=== PATIENT | male | born 1995 | race Caucasian/White ===

== ENCOUNTER 2017-12-11 07:55 | Day surgery (SDC) | payer OTHER, SELFPAY ==
[2017-12-10 12:37] VITALS: BMI 30.4
[2017-12-11] VITALS (7 sets, daily range): BP systolic 137–159; BP diastolic 62–85; PULSE 74–94; RESP 16–18; TEMP 36.6–36.9; O2SAT 97–100; BMI 32.8
--- NOTE | 2017-12-11 08:00 | DI.RAD.S_ITS ---
PROCEDURE: XR ANKLE RT MIN 3V INDICATIONS: RIGHT ANKLE FX REPAIR TECHNIQUE: Single intraoperative fluoroscopic view of the ankle were acquired. COMPARISON: None. FINDINGS: Bones: Single intraoperative fluoroscopic view demonstrates ORIF of the distal fibula. Bones are in anatomic alignment. IMPRESSION: Single intraoperative fluoroscopic view of right distal fibular ORIF. Dictated by: Sis Thompson M.D. on 12/11/2017 at 11:19 Approved by: Sis Thompson M.D. on 12/11/2017 at 11:20
--- NOTE | 2017-12-11 08:33 | PM.PREOP ---
Pre-operative Note Interval Note Pre-op Check: History & Physical Reviewed by Physician H&P completed within 30 days and has changed as indicated here:: No changes.
[2017-12-11] MEDS: LACTATED RINGERS 1,000 ML 42 ML IV ×2 (08:34→10:23)
[2017-12-11] MEDS: CEFAZOLIN 2 GM/100 ML FROZ.PIGGY IV (08:48)
[2017-12-11] MEDS: BUPIVACAINE 0.25% (PF) 30 ML VIAL INJ (10:02)
--- NOTE | 2017-12-11 10:42 | PM.OP.1 ---
Operative Date/Time/Diagnoses - Date of procedure: 12/11/17 Time of procedure: 08:45 Pre-op diagnosis: Right lateral malleolus (fibula) fracture Post-op diagnosis: same Procedure & Clinicians Procedure: Right lateral malleolus open reduction internal fixation. Same procedure as scheduled: Yes Indications: 22-year-old male who on December 01, 2017 sustained a right lateral malleolus Prabhakar B fracture when he was hiking and fell. He was unable bear weight and presented to outside hospital where he was diagnosed with a fracture. The risks benefits indications expectations of treatment options were discussed with the patient. The risks of surgery to include but not limited to infection, bleeding, damage to neurovascular structures, need for additional surgery, persistent or worsening pain, stiffness, iatrogenic fracture, nonunion, malunion, deep vein thrombosis, pulmonary embolism, loss of limb and loss of life were discussed with the patient. All questions were answered, the patient elected to proceed with surgery and informed consent was obtained. Surgeon: Yanira Crespo Vice President Of Academic Affairs: Tyler Jang Anesthesia Type: General (LMA) and Local (20 mL of 0.25upivacaine without epinephrine) Operative Notes Findings: Displaced right lateral malleolus fracture at the level of the syndesmosis. Closure Type: primary Specimen(s): none sent Implants & Drains: 1. Arthrex 7 hole 1/3 tubular plate. 2. 3.5 mm cortical screw x6. 3. 4.0 mm cancellous screw x2. Applied: cast(s) (Short leg plaster splint) Estimated Blood Loss (mL): 1 Blood products transfused: none Tourniquet time (min): 62 Procedure in detail: The patient was met in the preoperative hold area on the morning of surgery were reconfirmed with the correct patient, were placed to the correct procedure and the correct extremity which was the right lower extremity identified. Prior to the patient receiving medications the operative extremity was initialed by the surgeon. The patient was then brought back to the operating room in stable condition and placed supine on the operating room table. All bony prominences were well padded and sequential compression device was placed on the non operative leg. General anesthesia was induced without complication and an LMA was placed. The right lower extremity was then prepped and draped in the usual sterile fashion. After final draping additional ChloraPrep was utilized. 3 min were allowed to lapse to the level the ChloraPrep to dry. We held a surgical time-out where we confirmed that we had the correct patient, planned to do the correct procedure and had the correct extremity which was the right lower extremity identified. We also confirmed the patient received preoperative antibiotics, that all necessary gear was in the room confirmed sterile and that no members of the team had any concerns. I began by exsanguinating right lower extremity inflating the tourniquet to 250 mm Hg. I then made a lateral incision over the fibula. After sharply incising the skin I utilized electrocautery to obtain hemostasis. I then used dissection scissors to dissect down to the fibula. I elevated the periosteum in the area about the fracture. I then debrided the fracture of any hematoma or debris with a curette and irrigation. I then reduced the fracture and held in place with 2 [id number]-[id number] reduction clamps. I then obtained fluoroscopy demonstrating adequate reduction of the fracture. I then placed a lag screw perpendicular to the fracture by 1st drilling with a 3.5 mm drill from proximal anterior to the fracture line. I then drilled with a 2.5 mm drill from the fracture line to the posterior distal cortex. I then placed a 3.5 mm cortical screw in a lag fashion. I then removed the more proximal of the reduction clamps. I then placed a 2nd lag screw utilizing the same technique more proximally. I then removed the 2nd reduction clamp. I then placed a 7 hole 1/3 tubular plate on the lateral aspect of the fibula in a derotational manner. I 1st placed a bicortical 3.5 mm screw in the 3rd most distal hole after drilling bicortically with a 2.5 mm drill. I then drilled the distal most 2 holes again with a 2.5 mm drill bicortically and placed a 4.0 mm cancellous screws. I then drilled bicortically with a 2.5 mm drill in the proximal most 3 holes and placed 3.5 mm cortical screws bicortically in each of these holes. I then obtained AP, mortise and lateral r radiographs showing reduction of the fracture and appropriate placement of the implants. I then performed a stress external rotation view as well as a Cotton test which showed the ankle to be stable, therefore no syndesmotic fixation was performed. The wound was then thoroughly irrigated. The periosteum was closed utilizing 0 Polysorb in a gghsbs-qk-uleta fashion. The subcuticular layer was then closed utilizing 2-0 Polysorb in a buried fashion. The skin was then closed utilizing 3-0 nylon in a running fashion. The wound was then dressed with sterile Xeroform, plain gauze and Webril. The tourniquet was then deflated after 62 min. The patient was then placed into a well-padded [place] splint. The patient was then woken from general anesthesia without complication and taken to the PACU in stable condition. All sponge counts and needle counts were correct at the conclusion of the case. Complications: none Condition: stable Disposition: PACU Plan for aftercare: The patient will be discharged home same day of surgery. He remained in his splint until he is seen at his 1st postoperative visit. He will be nonweightbearing on his right lower extremity for 6 weeks. At his 1st follow-up visit I will transition him to a Cam boot and let him begin gentle plantar and dorsiflexion range of motion. At his 6 week follow-up I will obtain radiographs, anticipate advancing weight-bearing in Cam boot at that time.
[2017-12-11] MEDS: MEPERIDINE 50 MG/ML 25 MG IV (10:43)
--- NOTE | 2017-12-11 10:54 | P.OP_ITS ---
Operative Date/Time/Diagnoses - Date of procedure: 12/11/17 Time of procedure: 08:45 Pre-op diagnosis: Right lateral malleolus (fibula) fracture Post-op diagnosis: same Procedure & Clinicians Procedure: Right lateral malleolus open reduction internal fixation. Same procedure as scheduled: Yes Indications: 22-year-old male who on December 01, 2017 sustained a right lateral malleolus Prabhakar B fracture when he was hiking and fell. He was unable bear weight and presented to outside hospital where he was diagnosed with a fracture. The risks benefits indications expectations of treatment options were discussed with the patient. The risks of surgery to include but not limited to infection, bleeding, damage to neurovascular structures, need for additional surgery, persistent or worsening pain, stiffness, iatrogenic fracture, nonunion , malunion, deep vein thrombosis, pulmonary embolism, loss of limb and loss of life were discussed with the patient. All questions were answered, the patient elected to proceed with surgery and informed consent was obtained. Surgeon: Yanira Crespo Sheet Turner: Tyler Jang Anesthesia Type: General (LMA) and Local (20 mL of 0.25 upivacaine without epinephrine) Operative Notes Findings: Displaced right lateral malleolus fracture at the level of the syndesmosis. Closure Type: primary Specimen(s): none sent Implants & Drains: 1. Arthrex 7 hole 1/3 tubular plate. 2. 3.5 mm cortical screw x6. 3. 4.0 mm cancellous screw x2. Applied: cast(s) (Short leg plaster splint) Estimated Blood Loss (mL): 1 Blood products transfused: none Tourniquet time (min): 62 Procedure in detail: The patient was met in the preoperative hold area on the morning of surgery were reconfirmed with the correct patient, were placed to the correct procedure and the correct extremity which was the right lower extremity identified. Prior to the patient receiving medications the operative extremity was initialed by the surgeon. The patient was then brought back to the operating room in stable condition and placed supine on the operating room table. All bony prominences were well padded and sequential compression device was placed on the non operative leg. General anesthesia was induced without complication and an LMA was placed. The right lower extremity was then prepped and draped in the usual sterile fashion. After final draping additional ChloraPrep was utilized. 3 min were allowed to lapse to the level the ChloraPrep to dry. We held a surgical time-out where we confirmed that we had the correct patient, planned to do the correct procedure and had the correct extremity which was the right lower extremity identified. We also confirmed the patient received preoperative antibiotics, that all necessary gear was in the room confirmed sterile and that no members of the team had any concerns. I began by exsanguinating right lower extremity inflating the tourniquet to 250 mm Hg. I then made a lateral incision over the fibula. After sharply incising the skin I utilized electrocautery to obtain hemostasis. I then used dissection scissors to dissect down to the fibula. I elevated the periosteum in the area about the fracture. I then debrided the fracture of any hematoma or debris with a curette and irrigation. I then reduced the fracture and held in place with 2 rdtqh-tu-unbun reduction clamps. I then obtained fluoroscopy demonstrating adequate reduction of the fracture. I then placed a lag screw perpendicular to the fracture by 1st drilling with a 3.5 mm drill from proximal anterior to the fracture line. I then drilled with a 2.5 mm drill from the fracture line to the posterior distal cortex. I then placed a 3.5 mm cortical screw in a lag fashion. I then removed the more proximal of the reduction clamps. I then placed a 2nd lag screw utilizing the same technique more proximally. I then removed the 2nd reduction clamp. I then placed a 7 hole 1/3 tubular plate on the lateral aspect of the fibula in a derotational manner. I 1st placed a bicortical 3.5 mm screw in the 3rd most distal hole after drilling bicortically with a 2.5 mm drill. I then drilled the distal most 2 holes again with a 2.5 mm drill bicortically and placed a 4.0 mm cancellous screws. I then drilled bicortically with a 2.5 mm drill in the proximal most 3 holes and placed 3.5 mm cortical screws bicortically in each of these holes. I then obtained AP, mortise and lateral r radiographs showing reduction of the fracture and appropriate placement of the implants. I then performed a stress external rotation view as well as a Cotton test which showed the ankle to be stable, therefore no syndesmotic fixation was performed. The wound was then thoroughly irrigated. The periosteum was closed utilizing 0 Polysorb in a fsovgs-oo-ynuha fashion. The subcuticular layer was then closed utilizing 2-0 Polysorb in a buried fashion. The skin was then closed utilizing 3-0 nylon in a running fashion. The wound was then dressed with sterile Xeroform , plain gauze and Webril. The tourniquet was then deflated after 62 min. The patient was then placed into a well-padded [place] splint. The patient was then woken from general anesthesia without complication and taken to the PACU in stable condition. All sponge counts and needle counts were correct at the conclusion of the case. Complications: none Condition: stable Disposition: PACU Plan for aftercare: The patient will be discharged home same day of surgery. He remained in his splint until he is seen at his 1st postoperative visit. He will be nonweightbearing on his right lower extremity for 6 weeks. At his 1st follow-up visit I will transition him to a Cam boot and let him begin gentle plantar and dorsiflexion range of motion. At his 6 week follow-up I will obtain radiographs, anticipate advancing weight-bearing in Cam boot at that time.
[2017-12-11] MEDS: fentaNYL 100 MCG/2 ML INJ 50 MCG IV ×2 (10:59→11:04)
[2017-12-11] MEDS: HYDROCODONE/ACET 5/325 TABLET 1 TAB PO (11:16)
== END 2017-12-11 11:52 ==
LOC: OR 07:58
PROVIDERS: Visit Provider Orthopaedic Surgery
PROC: 0SSF04Z Reposition Right Ankle Joint with Internal Fixation Device, Open Approach (ICD-10-PCS; CPT 27792; principal; 2017-12-11 08:45)
DX: S82.61XA Displaced fracture of lateral malleolus of right fibula, initial encounter for closed fracture (principal); W01.0XXA Fall on same level from slipping, tripping and stumbling without subsequent striking against object, initial encounter; Y93.01 Activity, walking, marching and hiking
CPT/HCPCS: 27792; 73610; 76001; J0690; J1100; J2175; J2250; J2405; J2704; J3010

== ENCOUNTER 2017-12-19 09:39 | Emergency (ER) | payer OTHER, SELFPAY ==
[2017-12-19 09:40] VITALS: BP 127/67; PULSE 74; RESP 12; TEMP 36.1; O2SAT 100
--- NOTE | 2017-12-19 10:10 | ED.LOWEXIN ---
HPI - Extremity Injury (Lower) General Chief Complaint: Extremity Injury, Lower Stated Complaint: shooting pain on back of right leg Time Seen by Provider: 12/19/17 10:01 Source: patient Mode of arrival: ambulatory Limitations: no limitations History of Present Illness HPI Narrative: Patient is a 19-year-old male presents with right leg pain. He had ORIF of the right ankle on December 11. He has been in a cast said. Over last 2 days he has had increasing pain worse when he stands vertical better when he lays with his legs stretched out. He has not had any fever or chills. He has no numbness or tingling. Pain is right behind his knee. He denies any chest pain or shortness of breath Related Data Home Medications Medication Instructions Recorded Confirmed hydrocodone-acetaminophen [[place]] See Label Instructions .ROUTE 12/11/17 12/19/17 .COMPLEX PRN acetaminophen [Acetaminophen Extra 1,000 mg PO Q6H PRN MDD 3000 12/19/17 12/19/17 Strength] Previous Rx's Medication Instructions Recorded apixaban [Eliquis] 5 mg PO BID #74 tab 12/19/17 Allergies Allergy/AdvReac Type Severity Reaction Status Date / Time No Known Drug Allergies Allergy Verified 12/11/17 08:19 Review of Systems Review of Systems All systems reviewed & are unremarkable except as noted in HPI and below Constitutional Denies chills, Denies fever(s), Denies lethargy and Denies weakness Cardiovascular Denies chest pain, Denies irregular heart rhythm, Denies lightheadedness, Denies palpitations, Denies dyspnea, Denies dyspnea on exertion and Denies orthopnea Respiratory Denies cough, Denies dyspnea, Denies dyspnea on exertion and Denies wheezing Neurologic Denies weakness Endocrine Denies palpitations Allergic/Immunologic Denies wheezing PFSH Medical History Numbness (Acute) [place] teeth extracted (Acute) Social History household members: significant other Smoking Status: Former smoker alcohol intake: current Exam Initial Vital Signs Initial Vital Signs: Vital Signs Temperature 96.9 F L 12/19/17 09:40 Pulse Rate 74 12/19/17 09:40 Respiratory Rate 12 12/19/17 09:40 Blood Pressure 127/67 H 12/19/17 09:40 Pulse Oximetry 100 12/19/17 09:40 Const General: cooperative and healthy appearing Orientation: alert, awake and oriented x3 Resp Effort & Inspection: normal respiratory effort and able to speak in complete sentences Auscultation: clear to auscultation bilaterally Cardio Rhythm: regular rhythm Heart Sounds: S1 normal and S2 normal Skin Lesions: no lesions Rashes: no rashes Wounds: no wounds Extrem Other: Right leg-cast is removed. No significant swelling that he is tender posterior his knee. Distal pedal pulses intact. No erythema. Incision site is lateral malleoli and appears clean and dry. Course Orders Ordered: Discontinued Medications Apixaban (Eliquis) 10 mg PO NOW ONE Stop: 12/19/17 10:43 Last Admin: 12/19/17 10:56 Dose: 10 mg Vital Signs - 8 hr 12/19/17 09:40 Temperature 96.9 F L Pulse Rate 74 Respiratory Rate 12 Blood Pressure 127/67 H Pulse Oximetry 100 MDM - Extremity Injury (Lower) Imaging Data Venous US: Radiologist's impression: PROCEDURE: US PERIPH VENOUS LOW EXTREM RT INDICATIONS: pain post operative TECHNIQUE: Real-time imaging, as well as color and pulse Doppler interrogation, were performed of the lower extremity deep veins from the inguinal ligament to the popliteal fossa. COMPARISON: None. FINDINGS: Thrombus is identified involving the posterior tibial veins. The thrombus does not extend into the popliteal vein, superficial femoral vein, profunda femoral vein, or common femoral vein. IMPRESSION: Deep vein thrombus within the right calf does not extend into the popliteal vein or other deep veins of the thigh. Dictated by: Isac Wallace M.D. on 12/19/2017 at 11:00 [facility] Narrative Medical decision making narrative: Discussion with patient about anticoagulation and risks. We also discussed risks and complications of DVTs including pulmonary embolisms. All questions have been addressed. Discharge Plan Departure Patient Disposition: Home, Self-Care Clinical Impression: DVT (deep venous thrombosis) Discharge Date/Time: 12/19/17 11:38 Interventions: ED Discharge Assessment Last Done: 12/19/17 11:37 Instructions: Deep Vein Thrombosis Activity Restrictions/Additional Instructions: *You have been diagnosed with deep vein thrombosis *What to do: Avoid ambulation for the next 24-48 hours if at all possible, with this medication insurance may not cover if this is the case please contact us or your primary care provider to help find an appropriate medication for you. -you will bleed more easily on this medication, if you should have any trauma to the head please report to the emergency department as soon as possible for evaluation *Continue to take medications as directed Eliquis 10 mg twice a day for 7 days then 5 mg twice a day *Follow up with your primary care provider in 2-3 days, follow up with your orthopedic, call today to schedule appointment *Return to ER if you should have increasing pain, swelling, shortness of breath, chest pain or any new, worsening or concerning symptoms Prescriptions: New apixaban [Eliquis] 5 mg tablet 5 mg PO BID Qty: 74 RF: 0 No Action hydrocodone-acetaminophen [[place]] 5-325 mg Tablet See Label Instructions .ROUTE .COMPLEX PRN (Reason: Pain (Scale Score 4-6)) RF: 0 acetaminophen [Acetaminophen Extra Strength] 500 mg Tablet 1,000 mg PO Q6H MDD 3000 PRN (Reason: Pain, Mild) RF: 0 Referrals: [facility] [Outside]
[2017-12-19 10:15] VITALS: PULSE 70
--- NOTE | 2017-12-19 10:16 | DI.US.S_ITS ---
PROCEDURE: US PERIPH VENOUS LOW EXTREM RT INDICATIONS: pain post operative TECHNIQUE: Real-time imaging, as well as color and pulse Doppler interrogation, were performed of the lower extremity deep veins from the inguinal ligament to the popliteal fossa. COMPARISON: None. FINDINGS: Thrombus is identified involving the posterior tibial veins. The thrombus does not extend into the popliteal vein, superficial femoral vein, profunda femoral vein, or common femoral vein. IMPRESSION: Deep vein thrombus within the right calf does not extend into the popliteal vein or other deep veins of the thigh. Dictated by: Isac Wallace M.D. on 12/19/2017 at 11:00 Approved by: Isac Wallace M.D. on 12/19/2017 at 11:05
--- NOTE | 2017-12-19 10:17 | PC.NURSE ---
bertrand splint removed. Minimal swelling. Full CSM. Pain minimal w/ leg elevated. Incision is clean and dry w/o s/s of infection. Calf is tender to touch. Not hot / red. Denies shortness of breath / chest pain.
[2017-12-19 10:53] VITALS: BP 122/69; PULSE 70; RESP 16; O2SAT 97
[2017-12-19] MEDS: APIXABAN 5 MG TABLET 10 MG PO (10:56)
== END 2017-12-19 11:38 | disposition home or self-care (01) ==
PROVIDERS: Emergency Provider Emergency Medicine
DX: I82.401 Acute embolism and thrombosis of unspecified deep veins of right lower extremity (principal)
CPT/HCPCS: 29515; 93971; 99282; 99284

== ENCOUNTER → 2021-07-19 15:35 | Outpatient (CLI) | payer OTHER, SELFPAY ==
--- NOTE | 2021-07-19 | DI.MRI.S_ITS ---
PROCEDURE: MR CERVICAL SPINE WO CON INDICATIONS: NEUROPTAHIC NUMBNESS AND TINGLING TECHNIQUE: Noncontrast sagittal T1 spin echo and T2 fast spin echo, sagittal STIR, foraminal oblique sagittal T2 fast spin echo, and axial gradient echo or T2 fast spin echo through the cervical spine. COMPARISON: [facility], CR, XR CERVICAL SPINE WITH OBLIQUES, 05/06/2021, 9:57. FINDINGS: Image quality: This examination is limited by involuntary motion artifact. Alignment and Curvature: There is straightening of the normal cervical lordosis. No focal AP alignment abnormality is seen. Bone Marrow: Marrow demonstrates normal overall signal. Spinal Cord: Visualized spinal cord has normal size and signal. No cerebellar tonsillar herniation. Paraspinous Soft Tissues: No paravertebral masses. Prevertebral soft tissues are normal in thickness. C2-C3: Normal appearance. C3-C4: The disc height and disc signal are relatively well preserved. Mild to moderate disc osteophyte complex is seen, with a mild central disc osteophyte protrusion. Mild to moderate facet hypertrophy is seen. Moderate bilateral neural foraminal narrowing is seen. Moderate central canal narrowing is seen. There is associated mass effect upon the ventral spinal cord. C4-C5: The disc height and disc signal are relatively well preserved. A mild degree of generalized disc osteophyte complex is seen. Moderate facet joint hypertrophy is seen. No significant neural foraminal narrowing is seen. Mild to moderate central canal narrowing is seen, with minimal mass effect upon the ventral spinal cord. C5-C6: Minimal to mild loss of disc height and disc signal can be seen. Moderate disc osteophyte complex is seen, with a central/right disc osteophyte protrusion, as on series 3, image 29. Mild to moderate facet hypertrophy is seen. There is [id number] bilateral neural foraminal narrowing seen. At least moderate central canal narrowing is seen. There is associated mass effect upon the ventral spinal cord. C6-C7: Minimal to mild loss of disc height and disc signal can be seen. Moderate disc osteophyte complex is seen, with a right lateral recess/right foraminal disc extrusion, which is best seen on series 4, image 6, yet can also be seen on series 3 images 33 and 34. This disc extrusion measures 1 cm craniocaudal. Mild facet joint hypertrophy is seen. There is moderate to severe bilateral neural foraminal narrowing seen. Moderate to severe central canal narrowing is seen, with associated mass effect upon the ventral spinal cord. C7-T1: No significant abnormality is seen. 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 At this level, there is moderate to severe bilateral neural foraminal narrowing and moderate to severe central canal narrowing present. Dictated by: Terry Huang M.D. on 07/19/2021 at 16:13 Approved by: Terry Huang M.D. on 07/19/2021 at 16:18
== END ==
PROVIDERS: Referring Provider Student in an Organized Health Care Education/Training Program; Visit Provider Student in an Organized Health Care Education/Training Program
DX: M50.223 Other cervical disc displacement at C6-C7 level (principal); M47.812 Spondylosis without myelopathy or radiculopathy, cervical region
CPT/HCPCS: 72141

== ENCOUNTER 2021-07-24 07:09 | Emergency (ER) | payer OTHER, SELFPAY ==
[2021-07-24 07:10] VITALS: BP 143/88; PULSE 88; RESP 18; TEMP 36.7; O2SAT 100; BMI 31.0
--- NOTE | 2021-07-24 08:05 | ED.EXTPRO ---
HPI - Extremity Problem General Chief complaint: Extremity Problem,Nontraumatic Stated complaint: right arm/hand numb x2 days Time Seen by Provider: 07/24/21 08:05 Source: patient Mode of arrival: Ambulatory Limitations: no limitations History of Present Illness HPI Narrative: This is a 26 year old male who comes emergency department with complaint of right upper extremity pain and numbness and weakness. Patient states he had injury last March. He states he turned his neck suddenly began having pain. He has had intermittent symptoms. They have become more persistent. He was seen by [facility] [employer] doctors ordered a cervical MRI. Had this on the 19 of July. Patient states that for the past 2 days he has had increased pain, he has had numbness and tingling from the elbow down to his hand and feels like it is a little bit more weak. Patient states he has been on steroids but he gets allergic reaction that makes his nipple swell. Patient states he is on oxycodone 1 tablet every 4-6 hours and Flexeril 1 tablet every 10 hours. He still quite uncomfortable. He has a sling that he has been wearing that is somewhat improving his symptoms. He does note that he has worsened symptoms when he extends his back, when he rotates to the right or fever rotates all the way to the left this worsens symptoms and causes increased pain down his arm. He is otherwise healthy. He does have some issues with sciatica. He denies any surgeries besides and ankle surgery. Patient states he does have ibuprofen 600 mg available but has not been taking it he was not sure he should take that with the oxycodone. Related Data Home Medications Medication Instructions Recorded Confirmed hydrocodone 5 mg-acetaminophen 325 See Rx Instructions .ROUTE 12/11/17 12/19/17 mg tablet ([place]) .COMPLEX PRN acetaminophen 500 mg tablet 1,000 mg PO Q6H PRN MDD 3000 12/19/17 12/19/17 (Acetaminophen Extra Strength) Previous Rx's Medication Instructions Recorded apixaban 5 mg tablet (Eliquis) 5 mg PO BID #74 tab 12/19/17 gabapentin 300 mg capsule 300 mg PO TID #30 cap 07/24/21 Allergies Allergy/AdvReac Type Severity Reaction Status Date / Time prednisone Allergy Verified 07/24/21 07:22 Review of Systems Review of Systems ROS Unobtainable: All systems reviewed & are unremarkable except as noted in HPI and below Patient History Medical History Numbness Surgical History [place] teeth extracted Social History household members: significant other Smoking Status: Former smoker alcohol intake: current Smoking Status: Former smoker alcohol intake frequency: a few times a week Substance Use Type: does not use Exam Narrative Exam Narrative: GENERAL: Alert and oriented x three, male in mild distress. HEENT: Head normocephalic, atraumatic, EOMI, pupils reactive, face symmetric, moist mucous membranes NECK: Supple, full range of motion CARDIOVASCULAR: Regular rate and rhythm without murmurs, rubs or gallops. RESPIRATORY: Breath sounds equal bilaterally, no wheezes rales or rhonchi. ABDOMEN: Soft, nontender. Normoactive bowel sounds all 4 quadrants. No guarding or rebound, rigidity, no mass : No CVA tenderness BACK: No cervical, thoracic or lumbar vertebral point tenderness. Positive Spurling's with rotation to the right and extension. Patient has normal range of motion. Patient's gait is normal. Muscle strength is 5/5 in upper extremities. 2+ radial pulses bilaterally. Sensation is intact in upper extremities but is slightly decreased and right forearm anterior posterior as well as hand. Patient Services Specialist are equal bilaterally. Patient has normal flexion extension at the wrist, elbow as well as flexion extension of the fingers and ADD/abductors of fingers. EXTREMITIES: Normal range of motion, no clubbing or edema. Neurovascularly intact. NEUROLOGICAL: Cranial nerves II through XII grossly intact. Moving all extremities SKIN: Warm, dry, no petechiae, no rashes or lesions. Initial Vital Signs Initial Vital Signs: Vital Signs Temperature 98.0 F 07/24/21 07:10 Pulse Rate 88 07/24/21 07:10 Respiratory Rate 18 07/24/21 07:10 Blood Pressure 143/88 H 07/24/21 07:10 Pulse Oximetry 100 07/24/21 07:10 Course Reevaluation(s) Reevaluation #1: Discussed his MRI findings and recommendations from Orthopedic surgery. States he can also follow-up with orthopedic surgery at the [employer]. He is comfortable with this plan. He states he has ibuprofen 600 mg at home and does not request any additional pain medication here in the department. He is open to trying gabapentin. He is reluctant to try steroids again as he had allergic reaction that he describes as having his nipples swell with steroids in the past. We discussed to monitor his symptoms and reviewed red flag symptoms/return precautions. Patient feels comfortable with this plan. All questions answered. Time: 08:38 Consultations Consultation #1: Jaz Lott-orthopedic surgery. Reviewed patient's findings he has paresthesias. He has good muscle strength on exam. Absorption Plant Operator Helper is intact. Patient does have cervical canal stenosis that is moderate to severe, neuroforaminal narrowing that is are severe along with disc protrusion affecting the right side the C5-6 region. He recommends steroids which we discussed patient has had allergic reactions to in the past does not tolerate. Pain control and to see him in the office this week along with return precautions to the ED to monitor his symptoms. Time: 08:15 Vital Signs Vital signs: Vital Signs - 8 hr 07/24/21 07:10 Temperature 98.0 F Pulse Rate 88 Respiratory Rate 18 Blood Pressure 143/88 H Pulse Oximetry 100 MDM - Extremity (Nontraumatic) Imaging Data Cspine MRI: Radiologist's Impression: [address] [address] Magnetic Resonance Report Signed Patient: Selwny Phillips MR#: [id number] : 1995 Acct:[id number] Age/Sex: 26 / M Date of Service: 07/19/21 Loc: MRI Accession Number: [id number] ?? Procedure: MR cervical spine wo con Ordering Provider: Satya Whitfield MD PROCEDURE:? MR CERVICAL SPINE WO CON ? INDICATIONS:? NEUROPTAHIC NUMBNESS AND TINGLING ? TECHNIQUE:? Noncontrast sagittal T1 spin echo and T2 fast spin echo, sagittal STIR, foraminal oblique sagittal T2 fast spin echo, and axial gradient echo or T2 fast spin echo through the cervical spine.? ? COMPARISON:? [facility], CR, XR CERVICAL SPINE WITH OBLIQUES, 05/06/2021, 9:57. ? FINDINGS:? Image quality:? This examination is limited by involuntary motion artifact.? ? Alignment and Curvature:? There is straightening of the normal cervical lordosis. No focal AP alignment abnormality is seen.? ? Bone Marrow:? Marrow demonstrates normal overall signal.? ? Spinal Cord:? Visualized spinal cord has normal size and signal.? No cerebellar tonsillar herniation.? ? Paraspinous Soft Tissues:? No paravertebral masses.? Prevertebral soft tissues are normal in thickness.? ? C2-C3:? Normal appearance.? ? C3-C4:? The disc height and disc signal are relatively well preserved.? Mild to moderate disc osteophyte complex is seen, with a mild central disc osteophyte protrusion.? Mild to moderate facet hypertrophy is seen. Moderate bilateral neural foraminal narrowing is seen.? Moderate central canal narrowing is seen.? There is associated mass effect upon the ventral spinal cord.? ? C4-C5:? The disc height and disc signal are relatively well preserved. A mild degree of generalized disc osteophyte complex is seen.? Moderate facet joint hypertrophy is seen.? No significant neural foraminal narrowing is seen.? Mild to moderate central canal narrowing is seen, with minimal mass effect upon the ventral spinal cord. ? C5-C6:? Minimal to mild loss of disc height and disc signal can be seen.? Moderate disc osteophyte complex is seen, with a central/right disc osteophyte protrusion, as on series 3, image 29. Mild to moderate facet hypertrophy is seen.? There is [id number] bilateral neural foraminal narrowing seen.? At least moderate central canal narrowing is seen. There is associated mass effect upon the ventral spinal cord.? ? C6-C7:? Minimal to mild loss of disc height and disc signal can be seen.? Moderate disc osteophyte complex is seen, with a right lateral recess/right foraminal disc extrusion, which is best seen on series 4, image 6, yet can also be seen on series 3 images 33 and 34. This disc extrusion measures 1 cm craniocaudal.? Mild facet joint hypertrophy is seen.? There is moderate to severe bilateral neural foraminal narrowing seen.? Moderate to severe central canal narrowing is seen, with associated mass effect upon the ventral spinal cord. ? C7-T1:? No significant abnormality is seen. ? ? IMPRESSION:? Premature cervical spine degenerative changes are seen, including a prominent disc extrusion on the right at the C6-C7 level.? ? At this level, there is moderate to severe bilateral neural foraminal narrowing and moderate to severe central canal narrowing present.? ? Dictated by: Terry Huang M.D. on 07/19/2021 at 16:13 ? ? Approved by: Terry Huang M.D. on 07/19/2021 at 16:18?? [facility] Narrative Medical decision making narrative: This is a 26-year-old comes in with right upper extremity radiculopathy that is been intermittent for several months. He had an MRI on the which was reviewed which does show moderate to severe canal stenosis, foraminal narrowing and bulge of the disc. Patient's physical exam is reassuring he has full strength on examination for me. His range of motion is appropriate. His perinatal coordinator are equal. I discussed with Orthopedic surgery who is happy to follow the patient. He does not tolerate steroids he gets nipple swelling. He does not wish to attempt steroids. Did give a prescription for gabapentin. We also reviewed his medications and optimize his timing. We did review return precautions. Patient also has follow-up with [facility] Orthopedic surgery as well as our orthopedic surgeons. Discharge Plan Departure Patient Disposition: Home Clinical Impression: Cervical radiculopathy, Intervertebral disc extrusion, Neural foraminal stenosis of cervical spine Instructions: DI for Lumbar Radiculopathy Activity Restrictions/Additional Instructions: Follow-up with orthopedic surgery this week. Call today to set up an appointment. I spoke with Dr. Linn who is happy to follow up with you. You may continue oxycodone every 4-6 hours. You may add ibuprofen up to 600 mg every 6 hours with this and you can add Tylenol up to a 1000 mg every 8 hours also. May increase your Flexeril to 1 tablet every 8 hours if needed. You can try gabapentin 1 tablet every 8 hours as needed for pain. This medication can be titrated upwards. Call your physician to assist with that if you need. Prescription sent to [facility] Please return for fevers, new or worsening weakness, loss of sensation, inability to move your arm map plotter objects, loss of bowel or bladder control, rapidly worsening pain or other new or concerning symptoms. Prescriptions: New gabapentin 300 mg capsule 300 mg PO TID Qty: 30 0RF No Action hydrocodone-acetaminophen [[place]] 5-325 mg Tablet See Rx Instructions .ROUTE .COMPLEX PRN (Reason: Pain (Scale Score 4-6)) 0RF Rx Instructions: q4-6hrs acetaminophen [Acetaminophen Extra Strength] 500 mg Tablet 1,000 mg PO Q6H MDD 3000 PRN (Reason: Pain, Mild) 0RF apixaban [Eliquis] 5 mg tablet 5 mg PO BID Qty: 74 0RF Rx Instructions: Take 10 mg twice a day for 7 days then 5 mg twice a day Referrals: Jaz Enamorado MD [Physician] - Stand Alone Forms: Work Release Note
[2021-07-24 08:47] VITALS: BP 141/79; PULSE 69; O2SAT 98
== END 2021-07-24 09:05 | disposition home or self-care (01) ==
PROVIDERS: Emergency Provider Emergency Medicine
DX: M54.12 Radiculopathy, cervical region (principal); M50.223 Other cervical disc displacement at C6-C7 level; M48.02 Spinal stenosis, cervical region; Z88.8 Allergy status to other drugs, medicaments and biological substances; Z87.891 Personal history of nicotine dependence
CPT/HCPCS: 99281

== ENCOUNTER → 2021-09-22 09:25 | Outpatient (CLI) | payer OTHER, SELFPAY ==
[2021-09-22 10:21] LABS: COVID19 -Nasal RAPID Negative (Negative)
== END ==
PROVIDERS: Visit Provider Nurse Practitioner Family
DX: Z20.822 Contact with and (suspected) exposure to COVID-19 (principal)
CPT/HCPCS: 87635; C9803

== ENCOUNTER 2021-09-25 11:40 | Day surgery (SDC) | payer OTHER, SELFPAY ==
[2021-09-13 14:21] VITALS: BMI 31.0
[2021-09-25] VITALS (16 sets, daily range): BP systolic 112–138; BP diastolic 53–84; PULSE 75–104; RESP 12–97; TEMP 36.1–36.9; O2SAT 13–100; BMI 31.0
--- NOTE | 2021-09-25 | DI.RAD.S_ITS ---
PROCEDURE: XR CERVICAL SPINE 2V OR 3V INDICATIONS: C5-6 C6-7 ACDF TECHNIQUE: 3 fluoroscopic images of the cervical spine. COMPARISON: [facility], CR, XR CERVICAL SPINE WITH OBLIQUES, 05/06/2021, 9:57. FINDINGS: Three fluoroscopic images of the cervical spine demonstrate anterior cervical fixation at C5-7. IMPRESSION: Postsurgical change of the cervical spine as detailed above. Dictated by: Zoltan Avery M.D. on 09/25/2021 at 19:07 Approved by: Zoltan Avery M.D. on 09/25/2021 at 19:11
[2021-09-25] MEDS: LACTATED RINGERS 1,000 ML 42 ML IV (12:15)
[2021-09-25] MEDS: ACETAMINOPHEN 325 MG TABLET 975 MG PO (12:18)
--- NOTE | 2021-09-25 13:04 | PM.PREOP ---
Pre-operative Note COVID-19 COVID-19 status: Negative Result date/Date tested (Pos, Neg/Pending): 09/24/21 Criteria for continued procedure: Expected advancement of disease process, Possibility delay results in more complex future surgery or treatment, Increased loss of function, Continuing or worsening of significant or severe pain, Deterioration of the patient's condition or overall health and Delay expected to result in less-positive ultimate med/surg outcome Interval Note History & Physical reviewed/Exam performed by Physician: Yes Changes to H&P: No
[2021-09-25] MEDS: CEFAZOLIN 2 GM/20 ML SYRINGE IV ×2 (14:03→21:37)
--- NOTE | 2021-09-25 14:18 | SUR.OPER ---
Supine, head on gel donut. Arms padded with gel pads, tucked at sides, towel roll under shoulders. Safety belt at thigh. Legs uncrossed.
[2021-09-25] MEDS: BUPIVACAINE 0.25% MDV 30 ML INJ (14:28)
--- NOTE | 2021-09-25 15:57 | PM.OP.1 ---
Operative Date/Time/Diagnoses Date of procedure: 09/25/21 Time of procedure: 14:00 Pre-op diagnosis: 1. C5-6, C6-7 spinal stenosis 2. C5-6, C6-7 disc herniation with radiculopathy Post-op diagnosis: same Procedure & Clinicians Procedure: 1. C5-6 C6-7 anterior cervical diskectomy and fusion 2. C5-6 C6-7 anterior interbody cage placement 3. C5-6 C6-7 anterior instrumentation with plate and screw placement in C5-C6 and C7 vertebrae 4. Utilization of microsurgical technique and operating microscope Same procedure as scheduled: Yes Indications: Patient has been having chronic neck pain and worsening cervical radiculopathy. Patient failed multiple conservative management with worsening pain weakness and numbness in her upper extremity. Patient has been having difficulty performing activity of daily living. After discussing risks benefits of treatment options, patient elected proceed with surgery. Surgeon: Jaz Enamorado [facility] Home Counselor: Neha Loyd Click Yes if Unassisted: No Anesthesia Type: General Operative Notes Closure Type: primary Specimen(s): none sent Prosthetic devices, grafts, tissues, transplants, or devices: Globus Extend Plate, PEEK cages Estimated Blood Loss (mL): 5 Blood products transfused: none Procedure in detail: Patient was seen in the preoperative area. Risks and benefits of the surgery was discussed with the patient. Operative consent was obtained and placed in the chart. Patient was then taken to the operative room. Prophylactic antibiotic was given less than 0.5 hr prior to skin incision. General anesthesia was administered. Patient was placed into a supine position on her radiolucent table. Bilateral shoulders were taped down to allow proper C-arm imaging. Anterior cervical area was prepped and draped in a sterile fashion. Time-out was performed at this time. Using lateral C-arm imaging, the level between C5 and C7 was identified and marked on patient's neck. A oblique incision from midline towards medial border of sternocleidomastoid muscle was made. The platysma muscle was incised in line with skin incision. Metzenbaum scissor was used to develop the plane between the medial border of sternocleidomastoid d and the strap muscles medially. The carotid sheath and its contents were identified and protected behind the hand-held retractor during the entire case. The plane between the carotid sheath and strap muscles was developed with Metzenbaum scissors. Dissection was made down to the level of the anterior cervical fascia. Longus colli muscle was incised on the anterior aspect of vertebral bodies bilaterally from C5-C7. Spinal needle was placed into the C5-6 disc space and confirmed with lateral C-arm imaging. Using microsurgical technique and operative microscope, anterior cervical diskectomy was performed at C5-6 and C6-7 level. This was done by removing the disc material, removing the anterior and posterior osteophytes posterior longitudinal ligaments along with performing bilateral foraminotomies at both levels. Patient was found to multiple fragments of extruded disc on the right side at both C5-6 C6-7 level. The extruded disc fragment along with rest of the disc material was removed in the process of discectomy at C5-6 C6-7 level. Patient's stenosis was fully decompressed after decompression was completed full centrally and in the neural foramen and bilateral at both levels. The diskectomy was completed, 2 anterior interbody cages were obtained. The cages were packed with DBM bone grafting material. One cage each along with the bone grafting material was then packed into the interbody spaces from C5-C7 with one cage into each interbody level. After the cages were placed, the anterior cervical plate was stabilized to the C5-C7 vertebrae using 2 screws at each each level. Total 6 screws were placed. After confirming placement of the hardware with AP and lateral C-arm imaging, the screws were locked into the plate using the locking mechanism and torque limiting screwdriver. After the hardware was placed and confirmed with AP and lateral C-arm imaging, the wound was irrigated with sterile normal saline. The platysma muscle and the subcutaneous tissue was closed with 2-0 Vicryl. The skin was closed with 4-0 Monocryl and Steri-Strips. Patient tolerated the procedure well. Patient was transferred recovery room in stable condition. There were no complications. Complications: none Post-operative Condition: stable Disposition: PACU Plan for aftercare: Admit to inpatient hospital
[2021-09-25] MEDS: SODIUM CHLORIDE 0.9% 1,000 ML 84 ML IV (16:04)
[2021-09-25] MEDS: HYDROMORPHONE 2 MG INJ IV ×3 (16:33→16:49)
[2021-09-25] MEDS: hydrOXYzine 50 MG/ML INJ 25 MG IM (16:36)
--- NOTE | 2021-09-25 16:56 | SUR.PHASEI ---
1652 SBAR report at bedside to Nancy WELLER.
--- NOTE | 2021-09-25 17:11 | SUR.PHASEI ---
Report called to NITHIN Nelson. All questions answered. White clothing bag, black backpack, and insulated water bottle going to the room.
--- NOTE | 2021-09-25 17:23 | SUR.PHASEI ---
Transported to by NITHIN Finley. Patient given sips of water, tolerated well. Stable.
[2021-09-25] MEDS: SODIUM CHLORIDE 0.9% 1,000 ML 100 ML IV (18:23)
[2021-09-25] MEDS: OXYCODONE IR 5 MG TABLET 10 MG PO ×2 (18:50→21:36)
--- NOTE | 2021-09-25 19:01 | PC.NURSE ---
Patient received from PACU approx. 1730 to room 203. Oriented to room and call light, VSS. Soft collar in place with anterior surgical neck dressing intact without drainage or bleeding. Moving all extremities. Continue to follow.
[2021-09-25] MEDS: ACETAMINOPHEN 325 MG TABLET 650 MG PO (21:35)
[2021-09-25] MEDS: DOCUSATE 100 MG CAPSULE PO (21:35)
[2021-09-25] MEDS: SENNOSIDES 8.6 MG TABLET 17.2 MG PO (21:35)
--- NOTE | 2021-09-25 23:24 | PC.NURSE ---
a/o voices needs. s/p cervical spine fusion, POD-1. + CSM x R hand pointer finger: which is numb and tingling from tip to 2nd joint. this is baseline for patient, it seems as though it's improving. amb w/ steady gait to bathroom. reports 4/10 BTP w/ movement, tolerating oxycodone 10mg PO. fluids available at bedside. skin is warm/dry. SCD's on for hx of DVT. 2244: patient requested SCD's be turned off for a few hours so he could rest. IVF via PIV. call light w/in reach.
[2021-09-26] MEDS: OXYCODONE IR 5 MG TABLET 10 MG PO ×2 (02:16→06:06)
[2021-09-26] MEDS: SODIUM CHLORIDE 0.9% 1,000 ML 100 ML IV (04:21)
[2021-09-26 04:30] VITALS: BP 113/64; PULSE 67; RESP 18; TEMP 36.2; O2SAT 99
[2021-09-26] MEDS: CEFAZOLIN 2 GM/20 ML SYRINGE IV (06:08)
[2021-09-26 07:33] VITALS: BP 108/57; PULSE 75; RESP 20; TEMP 36.7; O2SAT 97
--- NOTE | 2021-09-26 07:44 | PM.DS.1 ---
History of Present Illness History of Present Illness Date Patient Seen: 09/26/21 Time Patient Seen: 07:44 Chief complaint: Neck pain s/p cervical fusion Narrative: Patient is complaining of mild neck pain this morning. He does note he has some difficulty talking, no difficulty swallowing. He has persisting numbness in his right index finger, relatively unchanged from surgery. Overall he is feeling well and would like to be discharged home today after physical therapy. Discharge Providers Provider Discharge Date: 09/26/21 Primary care physician: Dane Dimas Consults: 09/25/21 17:25 Consult to Occupational Therapy Evaluate & Treat Comment: Physician Instructions: Evaluate and treat Consult to Physical Therapy Evaluate & Treat Comment: Physician Instructions: Evaluate and Treat Discharge provider: Karla Baum PA-C Summary Hospital Course Discharge Diagnosis: 1. C5-6, C6-7 spinal stenosis 2. C5-6, C6-7 disc herniation with radiculopathy Hospital Course: Operative Date/Time/Diagnoses Date of procedure: 09/25/21 Time of procedure: 14:00 Procedure & Clinicians Procedure: 1.? C5-6 C6-7 anterior cervical diskectomy and fusion 2.? C5-6 C6-7 anterior interbody cage placement 3.? C5-6 C6-7 anterior instrumentation with plate and screw placement in C5-C6 and C7 vertebrae 4.? Utilization of microsurgical technique and operating microscope Same procedure as scheduled: Yes Indications: Patient has been having chronic neck pain and worsening cervical radiculopathy. Patient failed multiple conservative management with worsening pain weakness and numbness in her upper extremity.? Patient has been having difficulty performing activity of daily living.? After discussing risks benefits of treatment options, patient elected proceed with surgery. Surgeon: Jaz Enamorado Hydraulic Punch Press Operator: Neha Loyd Click Yes if Unassisted: No Anesthesia Type: General Operative Notes Closure Type: primary Specimen(s): none sent Prosthetic devices, grafts, tissues, transplants, or devices: Globus Extend Plate, PEEK cages Estimated Blood Loss (mL): 5 Blood products transfused: none Status at Discharge Cognitive/behavioral status at discharge: oriented Overall status at discharge: patient is progressing back to baseline Exam Vital Signs (past 8 hours): - 09/25/21 23:50 09/26/21 04:30 09/26/21 07:33 Temperature 97.7 F 97.2 F L 98.1 F Pulse Rate 75 67 75 Respiratory Rate 18 18 20 Blood Pressure 112/53 L 113/64 108/57 L Pulse Oximetry 100 99 97 Oxygen Delivery Method Room Air Oxygen Flow Rate 0 Narrative Exam Narrative: Pleasant 26-year-old male, resting comfortably in bed, no acute distress. Dressing is clean, dry, intact. Bilateral upper extremities: Epic Anesthesia Analyst strength is 5/5, wrist flexion and extension also 5/5. He has decreased sensation in his right index finger, otherwise distally neurovascularly intact. [facility] Medical History DVT (deep venous thrombosis) (12/13/17) Numbness Spinal stenosis, cervical region Surgical History History of ankle surgery (12/11/17) [place] teeth extracted Social History household members: spouse Smoking Status: Former smoker alcohol intake: current Discharge Assessment & Plan Assessment and Plan Assessment: Stable status post cervical fusion Plan of Treatment: -mobilize with physical therapy. -continue with multimodal pain management -DC home today once cleared by PT Discharge Plan Discharge Plan Patient Disposition: Home Discharge orders & Medications Discharge Orders: Discharge (Order); Ordered 09/26/21 Ordered By: Karla Baum Prescriptions: New acetaminophen 500 mg capsule 500 mg PO Q4H MDD Max 3000 mg per day PRN (Reason: Pain, Mild (1-3)) Qty: 90 0RF docusate sodium 100 mg Capsule 100 mg PO BID PRN (Reason: Constipation from narcotic pain meds) Qty: 20 0RF oxycodone 5 mg Tablet See Rx Instructions .ROUTE .COMPLEX PRN (Reason: Pain, Severe (7-10)) Qty: 42 0RF Rx Instructions: Take 1-2 tablets by mouth every 4 hours as needed for moderate to severe postoperative pain Follow up/Referrals: Dane Dimas [Primary Care Provider] - Jaz Enamorado MD [Physician] - As previously scheduled (Follow up w/ Dr Enamorado on 10/12/2021 @ 2:00 pm at [facility] office in [place].) Diet/Activity/Treatments Diet: Diet as Tolerated Diet comment: Stick with soft, easy to swallow foods for the first few days. Activity: Activity as tolerated. Cold/Heat Therapy: Heat to the back of your neck as needed for pain. Skin/Wound/Dressing Care Report to your healthcare provider any signs of infection, such as:: chills, fever, night sweats, increased pain, unusual drainage and unusual redness Dressing: May shower; leave dressing in place until follow up with Dr Enamorado. May remove dressing if it becomes wet inside - DO NOT remove steri strips. Other wound treatment: Wear cervical collar when up walking around or sitting upright. May have off to eat, shower, and sleep. You may find it more comfortable to sleep with the collar on. Visit Report/Discharge Packet Instructions: DI for Anterior Cervical Discectomy and Fusion Stand Alone Forms: Surgery Discharge Discharge Data Primary Care Provider: Dane Dimas Attending Provider: Jaz Enamorado
--- NOTE | 2021-09-26 10:00 | OT.IP.EVAL ---
Current Diagnoses Other spondylosis with radiculopathy, cervical region (09/25/21) Spinal stenosis, cervical region (09/25/21) Surgery Performed Operation Date: 09/25/21 13:45 Actual Procedures p C5-6, C6-7 ACDF w. anterior instrumentation(Not Applicable) - Jaz Enamorado MD Past Medical History (Last Reviewed 09/26/21 @ 07:46 by Karla Baum PA-C) DVT (deep venous thrombosis) (12/13/17) History of ankle surgery (12/11/17) Numbness Spinal stenosis, cervical region [place] teeth extracted Surgical History (Last Reviewed 09/26/21 @ 07:46 by Karla Baum PA-C) History of ankle surgery (12/11/17) [place] teeth extracted Occupational Therapy Inpatient Evaluation/Re-Eval M1 PT/OT-IP Prior Functional Status Start: 09/26/21 12:20 Freq: NEEDED Status: Active Protocol: Document 09/26/21 12:21 CGR (Rec: 09/26/21 13:04 CGR [id number]) Medical Review Prior Functional Status Medical History Reviewed Yes Communication Pt is an effective verbal communicator. Mobility and Gait Pt was IND in all mobility Activities of Daily Living and IADL's Pt was IND in all ADLs Social History Household Members spouse Living Arrangements House Number of Floors (Floors) One Floor Number of Stairs To Enter/Railing? 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 M2 OT-IP Current Condition Start: 09/26/21 12:20 Freq: Status: Active Protocol: Document 09/26/21 12:21 CGR (Rec: 09/26/21 13:04 CGR [id number]) Occupational Therapy Current Condition Current Condition Evaluation Date 09/26/21 Treatment Diagnosis c5-6, c6-7 sx Diagnosis Onset Date 09/25/21 Post Operative Precautions Cervical Spine Precautions Soft Collar for Comfort,No Heavy Lifting,Log Roll M3 OT- IP Subjective and Pain Start: 09/26/21 12:20 Freq: Status: Active Protocol: Document 09/26/21 12:21 CGR (Rec: 09/26/21 13:04 CGR [id number]) OT- Subjective Occupational Therapy Visit Type Type Initial Evaluation Visit Start Time 09:35 Visit Stop Time 10:00 Total Visit Minutes 25 Notes Pt is ready to discharge. OT Pain Assessment Pain When Pain Assessed At Rest Pain Present Pain Present Pain Reported Location neck Intensity 2 Scale Used Numeric (0 - 10) Management Techniques Modification of Treatment,Re- positioning,Timing of Activity with Medications M4 OT- IP ADL's Start: 09/26/21 12:20 Freq: Status: Active Protocol: Document 09/26/21 12:21 CGR (Rec: 09/26/21 13:04 R [id number]) OT [id number] Comments OT Self-Feeding Comments Not meal time OT ADL-Grooming General Evaluation Grooming Ability Independent Areas Needing Assistance Retrieving/Set-up of Grooming Items,Face Washing Comments OT Grooming Comments standing at sink OT ADL-Oral Care General Eval Oral Care Ability Independent Areas of Assistance Brushing Teeth,Retrieving/Set- Up of Items Comments Oral Care Comments standing at sink OT ADL-Dressing General Eval Lower Body Dressing Ability Independent Areas Needing Assistance Socks Comments OT Dressing Comments seated eob and brining foot up to knee. OT ADL-Toileting General Evaluation Toileting Ability Independent Comments OT Toileting Comments toilet transfer with IND OT ADL-Bathing Comments OT Bathing Comments not performed M5 OT- IP IADL's Start: 09/26/21 12:20 Freq: Status: Active Protocol: Document 09/26/21 12:21 CGR (Rec: 09/26/21 13:04 R [id number]) OT-Instrumental Activities of Daily Living Deficits IADL Deficits Identified No Deficits Home Safety Awareness Awareness of Need for Assistance at Home Good Awareness Ability to Problem Solve Emergency Able to Problem Solve Situations Medication Management Medication Management No Deficits Identified Money Management Money Management No Deficits Identified Meal Preparation Meal Preparation No Deficits Identified 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 Pt states he will have to start driving to work in 3 weeks. M6 OT- IP Functional Cognition Start: 09/26/21 12:20 Freq: Status: Active Protocol: Document 09/26/21 12:21 CGR (Rec: 09/26/21 13:04 R [id number]) Cognitive Factors Limiting Selfcare Function Cognitive Ability Level of Alertness Alert Patient Orientation Name,Age,Birthday,Month,Date, Year,Day of Week,Place, Situation Attention Span Ability Capable of Focused Attention, Capable of Sustained Attention Ability to Follow Commands Able to Follow Multi-Step Commands Memory Description No Deficits Noted Safety Awareness No Deficits Noted Problem Solving Ability No deficits Noted OT- Vision and Hearing OT- Hearing Assessment OT- Hearing Assessment WFL OT- Vision Assessment Visual Attentiveness WFL Occular Pursuits WFL Visual Convergence WFL M7 OT- IP Mobility and Balance Start: 09/26/21 12:20 Freq: Status: Active Protocol: Document 09/26/21 12:21 CGR (Rec: 09/26/21 13:04 CGR [id number]) OT- Bed Mobility Assessment Rolling Type of Rolling Log Rolling,Roll to Right Level of Assistance Independent Supine to Sit Supine to Sit Assist Independent Sit to Supine Sit to Supine Assist Independent Scooting Scooting to Edge of Bed Independent OT-Transfer Assessment Sit to and From Stand Sit to and from Stand Independent Transfers Transfer Ability Independent Technique Transfer Destination Bed,Chair Transfer Technique Stand Step Pivot Devices Transfer Assistive Devices Gait Belt Comments Mobility Comments mobility around the room without ad OT- Balance Assessment Sitting Balance and Reactions Static Sitting Balance Ability Normal Dynamic Sitting Balance Ability Normal M8 OT- IP Objective Assessments Start: 09/26/21 12:20 Freq: Status: Active Protocol: Document 09/26/21 12:21 CGR (Rec: 09/26/21 13:04 CGR [id number]) OT Gross Range of Motion Upper Extremity Range of Motion Assessment Within Functional Limits OT Strength Upper Extremity Strength Assessment Within Functional Limits OT- Coordination Assessment Upper Extremity Finger to Nose Test Within Functional Limits Finger Tapping Test Within Functional Limits OT-Muscle Tone Assessment Muscle Tone WNL Yes OT Sensation Assessment Edema Edema Absent M9 OT- IP Assessment and Plan Start: 09/26/21 12:20 Freq: Status: Active Protocol: Document 09/26/21 12:21 CGR (Rec: 09/26/21 13:04 R [id number]) OT Summary Assessment and Plan Potential Rehabilitation Potential Excellent Analytic Complexity at Evaluation Low Summary OT Impairments Pain Progress Towards Goals Safe For Discharge Assessment Summary Pt presents as a low complexity evaluation s/p c5-7 sx. Pt is close to his baseline and understands his cervical precautions. Pt is safe for discharge home. Frequency of Treatment Frequency Of Treatment Discharge Treatment Plan OT Treatment Plan Discharge Planning Discharge Recommendations OT Discharge Recommendations Home Transportation Needs at Discharge Private Vehicle
--- NOTE | 2021-09-26 10:00 | PT.IIE ---
Current Diagnoses Other spondylosis with radiculopathy, cervical region (09/25/21) Spinal stenosis, cervical region (09/25/21) Surgery Performed Operation Date: 09/25/21 13:45 Actual Procedures p C5-6, C6-7 ACDF w. anterior instrumentation(Not Applicable) - Jaz Enamorado MD Medical History (Last Reviewed 09/26/21 @ 07:46 by Karla Baum PA-C) DVT (deep venous thrombosis) (12/13/17) Numbness Spinal stenosis, cervical region Physical Therapy Inpatient Evaluation/Re-Eval M1 PT/OT-IP Prior Functional Status Start: 09/26/21 13:16 Freq: NEEDED Status: Active Protocol: Document 09/26/21 10:00 AB (Rec: 09/26/21 13:21 AB [id number]) Medical Review Prior Functional Status Medical History Reviewed Yes Communication ablet o make need known Mobility and Gait pt stated that he is modified independe with all mobilities and ambulation without AD Social History Household Members spouse Living Arrangements House Number of Floors (Floors) One Floor Number of Stairs To Enter/Railing? 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 M2 PT-IP Current Condition Start: 09/26/21 13:16 Freq: NEEDED Status: Active Protocol: Document 09/26/21 10:00 AB (Rec: 09/26/21 13:21 AB [id number]) Physical Therapy Current Condition Current Condition Evaluation Date 09/26/21 Treatment Diagnosis s/p C5-6, C6-7 ACDF; difficulty in walking Onset Date 09/25/21 M3 PT-IP Subjective Start: 09/26/21 13:16 Freq: NEEDED Status: Active Protocol: Document 09/26/21 10:00 AB (Rec: 09/26/21 13:21 AB [id number]) Subjective Physical Therapy Visit Type Type Initial Evaluation Visit Start Time 10:00 Visit Stop Time 10:15 Total Visit Minutes 15 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 Physical Therapy Visit Comments Patient Comments agreeable to do PT Therapy Pain Assessment Pain When Pain Assessed At Rest Pain Present Pain Present Pain Reported Location neck Intensity 2 Scale Used Numeric (0 - 10) Pain Management Techniques Distraction,Modification of Treatment,Re-positioning, Timing of Activity with Medications M4 PT-IP Mobility and Gait Start: 09/26/21 13:16 Freq: NEEDED Status: Active Protocol: Document 09/26/21 10:00 AB (Rec: 09/26/21 13:21 AB [id number]) PT-Bed Mobility Assessment Rolling Type of Rolling Log Rolling Level of Assist Independent Supine to Sit Supine to Sit Independent Sit to Supine Sit to Supine Independent PT-Transfer Assessment Sit to and From Stand Sit to and from Stand Independent Equipment Transfer Assistive Device None Transfers Transfer Destination Bed,Chair Transfer Technique Stand Step Pivot Transfer Ability Level of Assist Independent Gait Assessment Gait Gait Assistance Required: Independent Distance (Feet) 50 Able to Maintain Weight Bearing Status Yes During Gait Assistive Devices Assistive Device None,Gait Belt Orthotic/Prosthetic Devices or Brace: Yes Gait Deviations General Gait Pattern Within Normal Limits Factors Limiting Gait Function Factors Limiting Gait Function Limited Range of Motion,Pain PT-Balance Assessment Sitting Balance and Reactions Static Sitting Balance Ability Normal Dynamic Sitting Balance Ability Normal Standing Balance and Reactions Static Standing Balance Ability Good Dynamic Standing Balance Ability Good Device Used without AD M5 PT-IP Objective Assessments Start: 09/26/21 13:16 Freq: NEEDED Status: Active Protocol: Document 09/26/21 10:00 AB (Rec: 09/26/21 13:21 AB [id number]) Orientation Orientation/Cognition Level of Alertness Alert Orientation Name,Age,Birthday,Month,Date, Year,Day of Week,Place, Situation Language Function Ability No Deficits Noted Safety Awareness Understands Safety Issues Memory Description No Deficits Noted Gross Range of Motion Lower Extremity ROM Assessment Within Functional Limits Strength Lower Extremity Strength Assessment Within Functional Limits Coordination Assessment Gross Coordination Gross Coordination WNL Sensation Assessment Sensation Gross Sensation WNL Muscle Tone Muscle Tone WNL Yes M6 PT-IP Treatment Start: 09/26/21 13:16 Freq: NEEDED Status: Active Protocol: Document 09/26/21 10:00 AB (Rec: 09/26/21 13:21 AB [id number]) Physical Therapy Treatment Education Education Provided Precautions,Weight Bearing Status,Post-Op Packet,Safety Brace Education Donning,Star,Patient Other Treatments Other Treatment Performed educated and demonstrated donning/doffing of cervical collar M7 PT-IP Assessment and Plan Start: 09/26/21 13:16 Freq: NEEDED Status: Active Protocol: Document 09/26/21 10:00 AB (Rec: 03/22/22 13:21 AB [id number]) PT Summary Assessment and Plan Potential Rehabilitation Potential Good Status of Condition at Evaluation Stable Summary Impairments Pain,ROM,Strength Assessment Summary pt is doing well with mobility without AD and is independent without AD. pt lives with his spouse and will assist him as needed. No futher PT intervention indicated. Pt may go home when medically stable Frequency of Treatment Frequency Of Treatment Discharge Precautions Cervical Spine Precautions Soft Collar for Comfort,No Heavy Lifting,Log Roll Recommendations To Nursing Amount of Assist Needed Independent Discharge Recommendations PT Discharge Recommendations Home with Assistance Transportation Needs at Discharge Private Vehicle
[2021-09-26 10:15] VITALS: O2SAT 99
[2021-09-26] MEDS: DOCUSATE 100 MG CAPSULE PO (10:17)
--- NOTE | 2021-09-26 10:47 | PC.NURSE ---
Patient sitting up in chair, denies pain issues at this time, all discharge instructions reviewed with patient who verbalizes understanding. Saline lock d/c'd. Patient is given assistance to finish dressing, says will wait for spouse to arrive to transport home. No needs or concerns at this time. Cervical dressing CDI. Soft collar in place.
== END 2021-09-26 10:45 | disposition home or self-care (01) ==
LOC: OR 11:41 → AC 11:41
PROVIDERS: Referring Provider Orthopaedic Surgery Orthopaedic Surgery of the Spine; Visit Provider Orthopaedic Surgery Orthopaedic Surgery of the Spine
PROC: (CPT 22551; principal; 2021-09-25 13:45)
DX: M48.02 Spinal stenosis, cervical region (principal); M47.22 Other spondylosis with radiculopathy, cervical region
CPT/HCPCS: 22551; 22552; 22853 ×2; 72040; 76000; 94762; 97161; 97165; 97535; C1713; J0690; J1100; J1170; J2250; J2405; J2704; J3010; J3410